=== PATIENT | male | born 1990 | race Caucasian/White ===

== ENCOUNTER 2020-03-05 11:28 | Emergency (ER) | payer BC ==
--- NOTE | 2020-03-05 12:00 | EDM.PDOC ---
ED HPI GENERAL MEDICAL PROBLEM - General Chief Complaint: ENT Problem Stated Complaint: EAR ACHE Time Seen by Provider: 03/05/20 11:50 Source of Information: Reports: Patient History Limitations: Reports: No Limitations - History of Present Illness INITIAL COMMENTS - FREE TEXT/NARRATIVE: This patient is a 29 year old male that presents to the ER. Patient reports he attempted to go to the clinic, but was sent to the ER because they could not COVID test him until 2pm today. Patient reports that he started with left ear pain, sore throat, hurts to eat and drink. He reports then today he noticed that he had drainage from the left ear. Patient also reports that today he started having a headache. He does report exposure to someone with a positive COVID about 2 1/2-3 weeks ago. He reports testing negative about 2 weeks ago. Onset Date: 03/01/20 Duration: Day(s): (4) Severity: Moderate Improves with: Reports: None Worsens with: Reports: None Associated Symptoms: Reports: Headaches, Malaise. Denies: Confusion, Chest Pain, Cough, cough w sputum, Diaphoresis, Fever/Chills, Loss of Appetite, Nausea/Vomiting, Rash, Seizure, Shortness of Breath, Syncope, Weakness Left Ear Pain Score (Numeric/FACES): 9 - Related Data Allergies Allergy/AdvReac Type Severity Reaction Status Date / Time No Known Allergies Allergy Verified 03/05/20 11:36 Home Meds: Home Meds Amoxicillin 1,000 mg PO TID 10 Days #60 capsule 03/05/20 [Rx] Ciprofloxacin/Dexamethasone [Ciprodex Otic Susp] 4 drop OT BID 7 Days #1 bottle 03/05/20 [Rx] lisinopriL [Lisinopril] 20 mg PO DAILY 03/05/20 [History] Past Medical History Cardiovascular History: Reports: Hypertension - Infectious Disease History Infectious Disease History: Reports: None - Past Surgical History GI Surgical History: Reports: Appendectomy Social & Family History - Tobacco Use Smoking Status *Q: Never Smoker - Caffeine Use Caffeine Use: Reports: Soda - Recreational Drug Use Recreational Drug Use: No ED ROS ENT - Review of Systems Review Of Systems: See Below Constitutional: Reports: Malaise HEENT: Reports: Ear Discharge (left), Ear Pain (left), Throat Pain Respiratory: Reports: No Symptoms. Denies: Shortness of Breath, Cough Cardiovascular: Reports: No Symptoms Endocrine: Reports: No Symptoms GI/Abdominal: Reports: No Symptoms. Denies: Abdominal Pain, Nausea, Vomiting : Reports: No Symptoms Musculoskeletal: Reports: No Symptoms Skin: Reports: No Symptoms Neurological: Reports: Headache. Denies: Confusion, Dizziness, Seizure, Syncope Psychiatric: Reports: No Symptoms Hematologic/Lymphatic: Reports: No Symptoms Immunologic: Reports: No Symptoms ED EXAM, ENT - Physical Exam Exam: See Below Exam Limited By: No Limitations General Appearance: Alert, WD/WN, No Apparent Distress Eye Exam: Bilateral Eye: PERRL, Other (eye discoloration pupil chronic) Ears: Canal Discharge (left), Canal Swelling, TM Bulging, TM Erythema. No: Louise cular Erythema, Auricular Tenderness, Canal Foreign Body Nose: Normal Inspection, Normal Mucousa, No Blood Mouth/Throat: Normal Gums, Normal Lips, Normal Teeth, Pharyngeal Erythema, Throat Pain, Tonsillar Erythema, Tonsillar Exudates, Tonsillar Swelling. No: Peritonsillar Mass, Trismus, Uvular Deviation, Uvular Edema Head: Atraumatic, Normocephalic Neck: Normal Inspection, Non-Tender, Full Range of Motion, Lymphadenopathy (L), Lymphadenopathy (R) Respiratory/Chest: No Respiratory Distress, Lungs Clear, Normal Breath Sounds, No Accessory Muscle Use Cardiovascular: Normal Peripheral Pulses, Regular Rate, Rhythm, No Edema, No Gallop, No JVD, No Murmur, No Rub Back: Normal Inspection Extremities: Normal Inspection, Normal Range of Motion, Non-Tender, No Pedal Edema, Normal Capillary Refill Neurological: Alert, Oriented Psychiatric: Normal Affect, Normal Mood Skin: Warm, Dry, Intact, Normal Color, No Rash Lymphatic: Adenopathy (bilateral anterior cervical. preaurical/postauricle.) Course - Vital Signs Last Recorded V/S: Last Vital Signs Temp 98.7 F 03/05/20 11:34 Pulse 97 03/05/20 11:34 Resp 16 03/05/20 11:34 BP 181/108 H 03/05/20 11:34 Pulse Ox 97 03/05/20 11:34 - Orders/Labs/Meds Orders: Active Orders 24 hr Category Date Time Status Lidocaine 1% [Xylocaine-MPF 1%] Med 03/05/20 12:44 Once 2.1 ml INJECT ONETIME ONE cefTRIAXone [Rocephin] Med 03/05/20 12:43 Once 1 gm IM ONETIME ONE Labs: Laboratory Tests 03/05/20 03/05/20 03/05/20 Range/Units 12:05 12:05 12:05 WBC 13.0 H (5.0-10.0) 10^3/uL RBC 4.86 (4.50-6.00) 10^6/uL Hgb 14.7 (14.0-18.0) g/dL Hct 43.5 (40.0-54.0) % MCV 89.5 (82.0-94.0) fL MCH 30.2 (27.0-32.0) pg MCHC 33.8 (33.0-38.0) g/dL RDW Coeff of Siomara 13.5 (11.0-15.0) % Plt Count 201 (150-400) 10^3/uL Add Manual Diff Yes Neutrophils % (Manual) 68 (35-85) % Band Neutrophils % 20 H (0-5) % Lymphocytes % (Manual) 6 L (21-55) % Monocytes % (Manual) 6 (2-12) % Sodium 137 (136-145) mEq/L Potassium 4.3 (3.5-5.0) mEq/L Chloride 100 (98-106) mEq/L Carbon Dioxide 27 (21-32) mmol/L BUN 8 (7-18) mg/dL Creatinine 0.9 (0.7-1.3) mg/dL Est Cr Clr Drug Dosing 120.02 mL/min Estimated GFR (MDRD) > 60 (>=60) mL/min Glucose 133 H (75-99) mg/dL Calcium 9.4 (8.4-10.1) mg/dL Total Bilirubin 0.9 (0.0-1.0) mg/dL AST 23 (15-37) U/L ALT 57 (12-78) U/L Alkaline Phosphatase 89 (46-116) U/L Total Protein 8.5 H (6.4-8.2) g/dL Albumin 4.2 (3.4-5.0) g/dL COVID-19 ([facility]) (NEGATIVE) Monoscreen Negative 03/05/20 Range/Units 12:05 WBC (5.0-10.0) 10^3/uL RBC (4.50-6.00) 10^6/uL Hgb (14.0-18.0) g/dL Hct (40.0-54.0) % MCV (82.0-94.0) fL MCH (27.0-32.0) pg MCHC (33.0-38.0) g/dL RDW Coeff of Siomara (11.0-15.0) % Plt Count (150-400) 10^3/uL Add Manual Diff Neutrophils % (Manual) (35-85) % Band Neutrophils % (0-5) % Lymphocytes % (Manual) (21-55) % Monocytes % (Manual) (2-12) % Sodium (136-145) mEq/L Potassium (3.5-5.0) mEq/L Chloride (98-106) mEq/L Carbon Dioxide (21-32) mmol/L BUN (7-18) mg/dL Creatinine (0.7-1.3) mg/dL Est Cr Clr Drug Dosing mL/min Estimated GFR (MDRD) (>=60) mL/min Glucose (75-99) mg/dL Calcium (8.4-10.1) mg/dL Total Bilirubin (0.0-1.0) mg/dL AST (15-37) U/L ALT (12-78) U/L Alkaline Phosphatase (46-116) U/L Total Protein (6.4-8.2) g/dL Albumin (3.4-5.0) g/dL COVID-19 (LUCERO) Negative (NEGATIVE) Monoscreen Departure - Departure Time of Disposition: 12:45 Disposition: Home, Self-Care 01 Condition: Fair Clinical Impression: Otitis media Qualifiers: Otitis media type: suppurative Chronicity: acute Laterality: left Recurrence: non-recurrent Spontaneous tympanic membrane rupture: without spontaneous rupture Qualified Code(s): H66.002 - Acute suppurative otitis media without spontaneous rupture of ear drum, left ear Otitis externa Qualifiers: Otitis externa type: unspecified type Chronicity: acute Laterality: left Qualified Code(s): H60.502 - Unspecified acute noninfective otitis externa, left ear Pharyngitis Qualifiers: Pharyngitis/tonsillitis etiology: streptococcus Qualified Code(s): J02.0 - Streptococcal pharyngitis - Discharge Information *PRESCRIPTION DRUG MONITORING PROGRAM REVIEWED*: Not Applicable *COPY OF PRESCRIPTION DRUG MONITORING REPORT IN PATIENT LOLY: Not Applicable Prescriptions: Amoxicillin 1,000 mg PO TID 10 Days #60 capsule Ciprofloxacin/Dexamethasone [Ciprodex Otic Susp] 4 drop OT BID 7 Days #1 bottle Instructions: Ear Drops, Adult, [id number], Otitis Media, Adult, [id number], Otitis Externa, [id number], Strep Throat, Adult, [id number] Forms: ED Department Discharge Additional Instructions: Followup with primary care provider for recheck as needed Return to the ER for worsening of condition or any emergent concerns such as fever, vomiting, or other concerns Increase fluid intake Tylenol or Motrin for pain, swelling, fever Amoxicillin 500mg 2 pills three times a day for 10 days #60 no refill Ciprodex otic ear drops 4 drops to the left ear twice a day #1 no refill Sepsis Event Note (ED) - Evaluation Sepsis Screening Result: No Definite Risk - Focused Exam Vital Signs: Vital Signs Temp Pulse Resp BP Pulse Ox 03/05/20 11:34 98.7 F 97 16 181/108 H 97 - My Orders Last 24 Hours: My Active Orders 03/05/20 12:43 cefTRIAXone [Rocephin] 1 gm IM ONETIME ONE 03/05/20 12:44 Lidocaine 1% [Xylocaine-MPF 1%] 2.1 ml INJECT ONETIME ONE - Assessment/Plan Last 24 Hours: My Active Orders 03/05/20 12:43 cefTRIAXone [Rocephin] 1 gm IM ONETIME ONE 03/05/20 12:44 Lidocaine 1% [Xylocaine-MPF 1%] 2.1 ml INJECT ONETIME ONE Plan: PLEASE SEE RN NOTE FOR PFSH
[2020-03-05 12:22] LABS: CHLORIDE,CL 100 mEq/L (98-106); SODIUM,NA 137 mEq/L (136-145)
[2020-03-05] MEDS ORDERED: cefTRIAXone 1 GM Vial IM ONE (12:43)
[2020-03-05] MEDS ORDERED: Lidocaine 1% 20 ML MDV INJECT ONE (12:47)
== END 2020-03-05 12:58 | disposition home or self-care (01) ==
LOC: CC.ED 11:28
DX: H66.002 Acute suppurative otitis media without spontaneous rupture of ear drum, left ear (principal); H60.502 Unspecified acute noninfective otitis externa, left ear; J02.0 Streptococcal pharyngitis; I10 Essential (primary) hypertension; Z79.899 Other long term (current) drug therapy; Z20.828 Contact with and (suspected) exposure to other viral communicable diseases
CPT/HCPCS: 36415; 80053; 85025; 86308; 87430; 96372; 99283; J0696; J2001; U0002